=== PATIENT | male | born 1945 | race Caucasian/White ===

== ENCOUNTER 2017-05-03 13:47 | Inpatient (IN) | payer MEDICARE, SELFPAY ==
[2017-05-03] VITALS (11 sets, daily range): BP systolic 107–173; BP diastolic 52–85; PULSE 72–90; RESP 14–30; TEMP 36.8–36.9; O2SAT 84–97; BMI 33.5; BMI 35.2
--- NOTE | 2017-05-03 13:52 | EKG12_ITS ---
Test Reason : SOB Blood Pressure : / mmHG Vent. Rate : 083 BPM Atrial Rate : 083 BPM P-R Int : 130 ms QRS Dur : 104 ms QT Int : 382 ms P-R-T Axes : 053 037 054 degrees QTc Int : 448 ms Normal sinus rhythm Low voltage QRS Borderline ECG Confirmed by ADRIANNA MAGAÑA, HAIELY ([id number]), story editor RAJ ROBLEDO ([id number]) on 05/05/2017 3:11:19 PM Referred By: EVELIA Confirmed By:HAILEY RODAS MD
--- NOTE | 2017-05-03 13:52 | RAD_ITS ---
STUDY: X-RAY CHEST REASON FOR EXAM: Male, 71 years old. Cough. TECHNIQUE: Two AP portable upright views of the chest. COMPARISON: Portable AP upright chest x-ray February 05, 2017. FINDINGS: There are prominent bibasilar interstitial densities consistent with inflammatory change, subsegmental atelectasis, or mild pulmonary venous congestion. Stable focal, patchy density in the left midlung. There is no demonstrated pleural abnormality. There is stable mild cardiac enlargement. Normal mediastinum. There is a calcified left hilar lymph node. Normal visualized pulmonary arteries. Normal visualized aortic arch and descending thoracic aorta. There are stable multilevel degenerative changes of the visualized thoracic spine. Normal visualized ribs, clavicles, and shoulders. There is no demonstrated abnormality of the visualized soft tissue structures of the upper abdomen. RAD/Chest 1 View (Portable) IMPRESSION: 1. Prominent bibasilar interstitial densities consistent with inflammatory change or pulmonary venous congestion. 2. Stable mild cardiac enlargement. 3. Focal patchy, almost nodular density in the left midlung is stable. The extent of calcified granulomatous disease is less conspicuous here than on CT of November 2016. Electronically Signed: Julio Cesar Covington MD at 15:04 EDT , Service support ,
[2017-05-03] MEDS: Ipratropium/Albuterol Sulfate 3 ML AMPUL.NEB INHALATION ×2 (13:57→19:54)
[2017-05-03 14:10] LABS: Absolute Neutrophil Count 3.1 X10^3/uL (2.0-7.7); Basophil# 0.01 X10^3/uL; Basophil% 0.2 % (0-1); Eosinophil# 0.07 X10^3/uL; Eosinophils% 1.3 % (0-5); Hematocrit 38.1 % (40-54); Hemoglobin 11.7 g/dl (13.0-16.5); Lymphocyte % 29.3 % (19-41); Mean Corp Hgb Conc 30.7 g/gl (32-36); Mean Corpuscular Hgb 25.1 pg (27.0-32.0); Mean Corpuscular Volume 81.6 fL (80-94); Mean Platelet Vol. 10.7 fl (6.2-12.0); Monocyte# 0.62 X10^3/uL; Monocyte% 11.4 % (0-10); Neutrophil # 3.14 X10^3/uL (2.7-7.7); Neutrophil % 57.4 % (47-70); POSITIVE COUNT NO; POSITIVE DIFFERENTIAL NO; POSITIVE MORPHOLOGY NO; Platelet Count 188 K/mm3 (150-450); RBC Distribution Width CV 17.2 % (11.6-14.6); RBC Distribution Width SD 51.5 fl (35.1-43.9); Red Blood Count 4.67 M/mm3 (4.6-6.2); White Blood Count 5.5 K/mm3 (4.4-11.0)
--- NOTE | 2017-05-03 14:17 | EKG12_ITS ---
Test Reason : SOB Blood Pressure : / mmHG Vent. Rate : 089 BPM Atrial Rate : 089 BPM P-R Int : 116 ms QRS Dur : 124 ms QT Int : 384 ms P-R-T Axes : 050 088 051 degrees QTc Int : 467 ms Normal sinus rhythm Septal infarct , age undetermined Abnormal ECG Confirmed by ADRIANNA MAGAÑA, HAILEY ([id number]), editor producer RAJ ROBLEDO ([id number]) on 05/05/2017 3:11:31 PM Referred By: PALOMA Confirmed By:HAILEY RODAS MD
[2017-05-03 14:26] LABS: Anion Gap 7 (5-15); BUN 9 mg/dL (7-18); BUN/Creat Ratio 8.2 RATIO (10-20); Calcium,Total 8.1 mg/dL (8.5-10.1); Chloride 108 mmol/L (98-107); EST Glomerular Filtration Rate 70 mL/min (>60); Est Glom Filt Rate - Afr Amer 85 mL/min (>60); Glucose 161 mg/dL (74-106); Potassium 4.2 mmol/L (3.5-5.1); Sodium Level 142 mmol/L (136-145)
[2017-05-03 14:35] LABS: BNP,B-Type NATRIURETIC PEPTIDE 572.7 pg/mL (0-100)
--- NOTE | 2017-05-03 14:58 | NURSING ---
CALLED [facility] AND LEFT MESSAGE ON THE TRANSFER LINE.
--- NOTE | 2017-05-03 15:08 | ED.DCSUM_ITS ---
- ER Visit Summary Date of Service: 05/03/17 Chief Complaint: [] Shortness of breath this morning trouble walking due to dyspnea History of Present Illness: The patient is a 71 M [] 3 of CAD IA COPD diabetes hypertension multiple other medical problems see the list, reports he went to sleep feeling fine woke this morning with shortness of breath would not go away he had trouble just walking across the room in his home he came in for evaluation. He has had no chest pain fever chronic cough no abdominal pain normal bowel bladder habits chronic leg edema no history of DVT or PE Physical Examination: [] Word speaking in phrases his vital signs are unremarkable his pulse ox on 4 L is 98% his lung sounds are diminished as are his heart tones he has a barrel chest his abdomen is obese but soft and nontender backs unremarkable upper lower extremity unremarkable 2+ edema that is not new neurologically he is awake alert moving all 4 Test Results: [] Emergency Department Course and Treatment: [] Was treated with therapy oxygen aerosols is feeling better his EKG and his labs unremarkable, chest x-ray shows pulmonary vascular congestion BNP 600, INR pending, he has been treated with Lasix after aerosol therapy is feeling better but not want to be discharged home I spoke with the hospitalist will be done to see him shortly for admission , at this time there is no signs of cardiopulmonary distress or failure Treatment Plan: [] Disposition: [] Stable Impression: [] chf, heart failure causing sudden dyspnea history of IA CAD COPD diabetes This note was generated with [email or web address] dictation software. It may contain incorrect words, spelling, and punctuation that were not noted in review of the chart prior to signing ED Disposition - Plan for ED Patient: Chief Complaint: Shortness of Breath [facility] [Primary Care Provider] -
[2017-05-03] MEDS: Furosemide 40 MG/4 ML Vial IV ×2 (15:09→18:11)
[2017-05-03 15:14] LABS: International Normalized Ratio 2.3; Prothrombin Time (Protime)PT. 25.8 SECONDS (11.7-14.9)
--- NOTE | 2017-05-03 15:14 | NURSING ---
[facility], CALLED BACK. HE TOOK INFO FROM MESSAGE AND ASKED A COUPLE OTHER QUESTIONS. WHEN ASKED IF WE COULD ADMIT PATIENT, HIS RESPONCE WAS IF THAT IS NEEDED TO SUSTAIN PATIENT , THEN DO IT THE NURSE IN ADMITTING DOESN'T COME IN UNTIL TOMORROW.
--- NOTE | 2017-05-03 15:18 | NURSING ---
PCU CHF [facility]
--- NOTE | 2017-05-03 17:08 | PCM.HP.STD ---
Problem List (1) Chronic obstructive pulmonary disease, unspecified Status: Chronic Qualifiers: COPD type: emphysema Emphysema type: centrilobular Qualified Code(s): J43.2 - Centrilobular emphysema (2) Paroxysmal atrial fibrillation Status: Chronic (3) DM (diabetes mellitus), type 2 with peripheral vascular complications Status: Chronic (4) HTN (hypertension) Status: Chronic Qualifiers: Hypertension type: essential hypertension Qualified Code(s): I10 - Essential (primary) hypertension (5) Obesity (BMI 30-39.9) Status: Chronic (6) Congestive heart failure (CHF) Status: Acute Qualifiers: Heart failure type: systolic Heart failure chronicity: acute on chronic Qualified Code(s): I50.23 - Acute on chronic systolic (congestive) heart failure (7) Acute respiratory failure Status: Acute Qualifiers: Respiratory failure complication: hypoxia Qualified Code(s): J96.01 - Acute respiratory failure with hypoxia History of Present Illness Date of Admission: 05/03/17 Chief Complaint: Shortness of breath. Patient is a 71 years old male with history of systolic dysfunction and COPD, presents to ED with acute onset of shortness of breath, started when he woke up this morning. He states that he was doing as usual yesterday, denied of any chest pain, worsening of peripheral edema, palpitations, or dizziness before today. He has orthopnea now, with dyspnea at rest. His Oxygen saturation at the time of arrival was 84% room air, improved to upper 90's with 4 liter NC. BNP 527, troponin 0.05. EKG showed interventricular conduction delay without bundle branch with normal sinus rhythm. Past Medical History Past Medical History (Chronic Problems): Chronic Problems (Last Updated 03/17/17 @ 13:34 by Kendra Palacio) Stage 2 moderate COPD by GOLD classification (Chronic) Elevated liver enzymes (Chronic) Chronic obstructive pulmonary disease, unspecified (Chronic) Occlusion and stenosis of bilateral carotid arteries (Chronic) Intermittent claudication (Chronic) Fatigue (Chronic) Paroxysmal atrial fibrillation (Chronic) Old CT (myocardial infarction) (Chronic) DM (diabetes mellitus), 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) H/O percutaneous transluminal coronary angioplasty (Chronic) PTCA with stenting of RCA and LAD 10/09/2003; Coronary atherosclerosis of [place] coronary vessel (Chronic) PTCA with stenting of RCA and LAD 10/09/2003; Acute CT, anterior wall, subsequent episode of care (Chronic) HTN (hypertension) (Chronic) HLD (hyperlipidemia) (Chronic) Obesity (BMI 30-39.9) (Chronic) Tobacco use (Chronic) PVD (peripheral vascular disease) (Chronic) COPD (chronic obstructive pulmonary disease) (Chronic) Obesity (Chronic) CKD (chronic kidney disease), stage III (Chronic) Baseline Cr 1.0-1.2 Hypothyroidism (Chronic) Hypoxemia (Chronic) Coronary artery disease (Chronic) History of CT (myocardial infarction) (Chronic) Prostate cancer (Chronic) COPD exacerbation (Chronic) Chronic back pain (Chronic) Afib (Chronic) Diabetes mellitus type 2, uncontrolled (Chronic) Allergies Tetanus Vaccines and Toxoid [Tetanus Vaccines & Toxoid] Allergy (Verified 05/03/17 13:51) Swelling venom-honey bee [bee venom (honey bee)] Allergy (Verified 05/03/17 13:51) Swelling Home Medications: Ambulatory Orders Medication Instructions Recorded Amiodarone HCl [Cordarone] 100 mg PO DAILY 10/23/13 Levothyroxine [Synthroid] 25 mcg PO DAILY 10/23/13 Pravastatin [Pravachol] 40 mg PO QHS 10/23/13 Spironolactone [Aldactone] 25 mg PO DAILY 10/23/13 glipiZIDE [Glucotrol] 10 mg PO BID 10/23/13 Albuterol Inhaler [Ventolin Hfa] 1 - 2 puff INHALATION Q4H PRN PRN 10/28/13 #3 inhaler Pregabalin [Lyrica] 50 mg PO BID 08/25/15 Aspirin [Aspirin, Baby] 81 mg PO DAILY@0800 02/05/17 Carvedilol [Coreg (Beta Genna)] 6.25 mg PO BID 02/05/17 nitroglycerin 0.4 mg sublingual 0.4 mg SUBLINGUAL Q5M PRN 03/06/17 tablet Lisinopril [Zestril] 5 mg PO BID 05/03/17 Saxagliptin HCl [Onglyza] 5 mg PO DAILY 05/03/17 Tamsulosin HCl [Flomax] 0.4 mg PO BID 05/03/17 Tiotropium [place] [Spiriva 1 puff IH BID 05/03/17 Respimat] Warfarin [Coumadin ([facility])] 5 mg PO DAILY 05/03/17 Surgical History: - - PCI and cholecystectomy. Psychiatric History: No pertinent psych hx Smoking Status: Former smoker - *Family History Paternal History Items: No pertinent history Maternal History Items: No pertinent history Review of Systems Comment: ROS: In general: Patient has been in good health, denied of any constitutional symptoms, such as weight loss, or gain, fever, chills, or night sweats. Patient denied of any profound fatigue. HEENT: Unremarkable. Patient denied of any dizziness, chronic headache, blurred vision, double vision, dry mouth, or nasal congestion. CV/respiratory: See HPI. GI: Patient denied any abdominal pain, nausea, vomiting, diarrhea, constipation, melena, or hematochezia. : Patient denied any significant urinary symptoms. Neurology: Unremarkable. There is no history of seizure as an adult. Psychological: Unremarkable. ?. Endocrine: Unremarkable. Musculoskeletal: Unremarkable. VTE Information - Inpt Only VTE Present on Admission: No VTE Mechan Device Prophylaxis: Knee High KELLY Hose VTE Pharm Prophylaxis ordered?: Yes Objective: In general, patient is a well-nourished and developed adult. Appears short of breath, some gasping of air. HEENT: Head is atraumatic, and normocephalic. Pupils are equal, round, and reactive to light and accommodations. Neck is supple. There is no lymphadenopathy, or thyromegaly. Oral mucosa is pink, and moist. There are no lesions. Heart: Auscultation is normal with regular rhythm and rate. There is no extra heart sounds, or murmurs. S1 and S2 are present. Point of maximal impulse is not displaced. Lungs: Lungs are clear to auscultation bilaterally. There is no wheezing, or crackles. Abdomen: Abdominal wall is non-tender, and non-distended. There is no palpable mass or organomegaly. Normoactive bowel sounds are present. Extremities: There is no cyanosis or clubbing. Peripheral pulses are palpable. Trace edema posterior calf bilaterally. Skin: There are no any skin discoloration or lesions. Neurological: CN II - XII are intact. Sensory and motor functions are grossly normal with no obvious deficit. Cerebellar functions are within normal range. Gait was not tested. - Physical Exam Vital Signs Temp Pulse Resp BP Pulse Ox 98.3 F 84 19 H 151/76 H 97 05/03/17 16:31 05/03/17 16:31 05/03/17 16:31 05/03/17 16:31 05/03/17 16:31 Oxygen Flow Rate (L/min) 2 Oxygen Delivery Method Nasal Cannula Weight: 252 lb 10.396 oz Body Mass Index (BMI) 35.2 Diagnostic Data Chest X-Ray 05/03/17 13:52 IMPRESSION: 1. Prominent bibasilar interstitial densities consistent with inflammatory change or pulmonary venous congestion. 2. Stable mild cardiac enlargement. 3. Focal patchy, almost nodular density in the left midlung is stable. The extent of calcified granulomatous disease is less conspicuous here than on CT of November 2016. Electronically Signed: Julio Cesar Covington MD at 15:04 EDT , Service support , Assessment/Plan Patient is a 71 years old male with history of systolic dysfunction and COPD, presents to ED with acute onset of shortness of breath, started when he woke up this morning. He states that he was doing as usual yesterday, denied of any chest pain, worsening of peripheral edema, palpitations, or dizziness before today. He has orthopnea now, with dyspnea at rest. His Oxygen saturation at the time of arrival was 84% room air, improved to upper 90's with 4 liter NC. BNP 527, troponin 0.05. EKG showed interventricular conduction delay without bundle branch with normal sinus rhythm. #1 Acute hypoxic respiratory failure. Mostly due to CHF with underling COPD. CXR consistent with pulmonary edema. WBC normal and afebrile, less likely infectious process. Lasix 40 mg given in ED, continue 40 mg IV bid. Oxygen supplement. Bronchodilator: DuoNeb q6h + albuterol Med Neb q2h prn. Monitor BMP. Trend troponin rule out myocardial infarction. #2 CHF exacerbation, acute on chronic, with systolic dysfunction. EF 40% 09/2016. He is on Coreg, lisinopril, and spironolactone, continue. His Lasix has been withheld, and instructed by his hospice music therapy at [place] to use only when he has worsening of edema. He reports no edema recently, hence has not been taking Lasix. Lasix 40 mg IV bid as above. Echo in AM. #3 COPD, moderate. Does not appear in exacerbation with no cough or other respiratory symptoms. Hold Spiriva. Bronchodilator as above. #4 Paroxysmal atrial fibrillation. In sinus rhythm. Continue amiodarone. On warfarin, therapeutic range. Continue warfarin at 5 mg po qPM. Monitor INR daily x 3. #5 Hypothyroidism. On levothyroxine 25 mcg po qd. Check TSH level. #6 BPH with obstructive uropathy. Continue tamsulosin. VTE prophylaxis: warfarin in therapeutic range. GI prophylaxis: H2 genna po. Patient is full code. Disposition: home in 2 to 3 days. Code Visit Inpatient E&M: 19419 Init Hosp L3
--- NOTE | 2017-05-03 17:25 | HP.PCM_ITS ---
Problem List (1) Chronic obstructive pulmonary disease, unspecified Status: Chronic Qualifiers: COPD type: emphysema Emphysema type: centrilobular Qualified Code(s): J43.2 - Centrilobular emphysema (2) Paroxysmal atrial fibrillation Status: Chronic (3) DM (diabetes mellitus), type 2 with peripheral vascular complications Status: Chronic (4) HTN (hypertension) Status: Chronic Qualifiers: Hypertension type: essential hypertension Qualified Code(s): I10 - Essential (primary) hypertension (5) Obesity (BMI 30-39.9) Status: Chronic (6) Congestive heart failure (CHF) Status: Acute Qualifiers: Heart failure type: systolic Heart failure chronicity: acute on chronic Qualified Code(s): I50.23 - Acute on chronic systolic (congestive) heart failure (7) Acute respiratory failure Status: Acute Qualifiers: Respiratory failure complication: hypoxia Qualified Code(s): J96.01 - Acute respiratory failure with hypoxia History of Present Illness Date of Admission: 05/03/17 Chief Complaint: Shortness of breath. Patient is a 71 years old male with history of systolic dysfunction and COPD, presents to ED with acute onset of shortness of breath, started when he woke up this morning. He states that he was doing as usual yesterday, denied of any chest pain, worsening of peripheral edema, palpitations, or dizziness before today. He has orthopnea now, with dyspnea at rest. His Oxygen saturation at the time of arrival was 84% room air, improved to upper 90' s with 4 liter NC. BNP 527, troponin 0.05. EKG showed interventricular conduction delay without bundle branch with normal sinus rhythm. Past Medical History Past Medical History (Chronic Problems): Chronic Problems (Last Updated 03/17/17 @ 13:34 by Kendra Palacio) Stage 2 moderate COPD by GOLD classification (Chronic) Elevated liver enzymes (Chronic) Chronic obstructive pulmonary disease, unspecified (Chronic) Occlusion and stenosis of bilateral carotid arteries (Chronic) Intermittent claudication (Chronic) Fatigue (Chronic) Paroxysmal atrial fibrillation (Chronic) Old [place] (myocardial infarction) (Chronic) DM (diabetes mellitus), 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) H/O percutaneous transluminal coronary angioplasty (Chronic) PTCA with stenting of RCA and LAD 10/09/2003; Coronary atherosclerosis of [place] coronary vessel (Chronic) PTCA with stenting of RCA and LAD 10/09/2003; Acute ME, anterior wall, subsequent episode of care (Chronic) HTN (hypertension) (Chronic) HLD (hyperlipidemia) (Chronic) Obesity (BMI 30-39.9) (Chronic) Tobacco use (Chronic) PVD (peripheral vascular disease) (Chronic) COPD (chronic obstructive pulmonary disease) (Chronic) Obesity (Chronic) CKD (chronic kidney disease), stage III (Chronic) Baseline Cr 1.0-1.2 Hypothyroidism (Chronic) Hypoxemia (Chronic) Coronary artery disease (Chronic) History of [place] (myocardial infarction) (Chronic) Prostate cancer (Chronic) COPD exacerbation (Chronic) Chronic back pain (Chronic) Afib (Chronic) Diabetes mellitus type 2, uncontrolled (Chronic) Allergies Tetanus Vaccines and Toxoid [Tetanus Vaccines & Toxoid] Allergy (Verified 13:51) Swelling venom-honey bee [bee venom (honey bee)] Allergy (Verified 05/03/17 13:51) Swelling Home Medications: Ambulatory Orders Medication Instructions Recorded Amiodarone HCl [Cordarone] 100 mg PO DAILY 10/23/13 Levothyroxine [Synthroid] 25 mcg PO DAILY 10/23/13 Pravastatin [Pravachol] 40 mg PO QHS 10/23/13 Spironolactone [Aldactone] 25 mg PO DAILY 10/23/13 glipiZIDE [Glucotrol] 10 mg PO BID 10/23/13 Albuterol Inhaler [Ventolin Hfa] 1 - 2 puff INHALATION Q4H PRN PRN 10/28/13 #3 inhaler Pregabalin [Lyrica] 50 mg PO BID 08/25/15 Aspirin [Aspirin, Baby] 81 mg PO DAILY@0800 02/05/17 Carvedilol [Coreg (Beta Genna)] 6.25 mg PO BID 02/05/17 nitroglycerin 0.4 mg sublingual 0.4 mg SUBLINGUAL Q5M PRN 03/06/17 tablet Lisinopril [Zestril] 5 mg PO BID 05/03/17 Saxagliptin HCl [Onglyza] 5 mg PO DAILY 05/03/17 Tamsulosin HCl [Flomax] 0.4 mg PO BID 05/03/17 Tiotropium [place] [Spiriva 1 puff IH BID 05/03/17 Respimat] Warfarin [Coumadin ([facility])] 5 mg PO DAILY 05/03/17 Surgical History: - - PCI and cholecystectomy. Psychiatric History: No pertinent psych hx Smoking Status: Former smoker - *Family History Paternal History Items: No pertinent history Maternal History Items: No pertinent history Review of Systems Comment: ROS: In general: Patient has been in good health, denied of any constitutional symptoms, such as weight loss, or gain, fever, chills, or night sweats. Patient denied of any profound fatigue. HEENT: Unremarkable. Patient denied of any dizziness, chronic headache, blurred vision, double vision, dry mouth, or nasal congestion. CV/respiratory: See HPI. GI: Patient denied any abdominal pain, nausea, vomiting, diarrhea, constipation, melena, or hematochezia. : Patient denied any significant urinary symptoms. Neurology: Unremarkable. There is no history of seizure as an adult. Psychological: Unremarkable. ?. Endocrine: Unremarkable. Musculoskeletal: Unremarkable. VTE Information - Inpt Only VTE Present on Admission: No VTE Mechan Device Prophylaxis: Knee High KELLY Hose VTE Pharm Prophylaxis ordered?: Yes Objective: In general, patient is a well-nourished and developed adult. Appears short of breath, some gasping of air. HEENT: Head is atraumatic, and normocephalic. Pupils are equal, round, and reactive to light and accommodations. Neck is supple. There is no lymphadenopathy, or thyromegaly. Oral mucosa is pink, and moist. There are no lesions. Heart: Auscultation is normal with regular rhythm and rate. There is no extra heart sounds, or murmurs. S1 and S2 are present. Point of maximal impulse is not displaced. Lungs: Lungs are clear to auscultation bilaterally. There is no wheezing, or crackles. Abdomen: Abdominal wall is non-tender, and non-distended. There is no palpable mass or organomegaly. Normoactive bowel sounds are present. Extremities: There is no cyanosis or clubbing. Peripheral pulses are palpable. Trace edema posterior calf bilaterally. Skin: There are no any skin discoloration or lesions. Neurological: CN II - XII are intact. Sensory and motor functions are grossly normal with no obvious deficit. Cerebellar functions are within normal range. Gait was not tested. - Physical Exam Vital Signs Temp Pulse Resp BP Pulse Ox 98.3 F 84 19 H 151/76 H 97 05/03/17 16:31 05/03/17 16:31 05/03/17 16:31 05/03/17 16:31 05/03/17 16:31 Oxygen Flow Rate (L/min) 2 Oxygen Delivery Method Nasal Cannula Weight: 252 lb 10.396 oz Body Mass Index (BMI) 35.2 Diagnostic Data Chest X-Ray 05/03/17 13:52 IMPRESSION: 1. Prominent bibasilar interstitial densities consistent with inflammatory change or pulmonary venous congestion. 2. Stable mild cardiac enlargement. 3. Focal patchy, almost nodular density in the left midlung is stable. The extent of calcified granulomatous disease is less conspicuous here than on CT of November 2016. Electronically Signed: Julio Cesar Covington MD at 15:04 EDT , Service support , Assessment/Plan Patient is a 71 years old male with history of systolic dysfunction and COPD, presents to ED with acute onset of shortness of breath, started when he woke up this morning. He states that he was doing as usual yesterday, denied of any chest pain, worsening of peripheral edema, palpitations, or dizziness before today. He has orthopnea now, with dyspnea at rest. His Oxygen saturation at the time of arrival was 84% room air, improved to upper 90' s with 4 liter NC. BNP 527, troponin 0.05. EKG showed interventricular conduction delay without bundle branch with normal sinus rhythm. #1 Acute hypoxic respiratory failure. Mostly due to CHF with underling COPD. CXR consistent with pulmonary edema. WBC normal and afebrile, less likely infectious process. Lasix 40 mg given in ED, continue 40 mg IV bid. Oxygen supplement. Bronchodilator: DuoNeb q6h + albuterol Med Neb q2h prn. Monitor BMP. Trend troponin rule out myocardial infarction. #2 CHF exacerbation, acute on chronic, with systolic dysfunction. EF 40% 09/2016. He is on Coreg, lisinopril, and spironolactone, continue. His Lasix has been withheld, and instructed by his coat check attendant at [place] to use only when he has worsening of edema. He reports no edema recently, hence has not been taking Lasix. Lasix 40 mg IV bid as above. Echo in AM. #3 COPD, moderate. Does not appear in exacerbation with no cough or other respiratory symptoms. Hold Spiriva. Bronchodilator as above. #4 Paroxysmal atrial fibrillation. In sinus rhythm. Continue amiodarone. On warfarin, therapeutic range. Continue warfarin at 5 mg po qPM. Monitor INR daily x 3. #5 Hypothyroidism. On levothyroxine 25 mcg po qd. Check TSH level. #6 BPH with obstructive uropathy. Continue tamsulosin. VTE prophylaxis: warfarin in therapeutic range. GI prophylaxis: H2 genna po. Patient is full code. Disposition: home in 2 to 3 days. Code Visit Inpatient E&M: 08968 Init Hosp L3
[2017-05-03] MEDS: Glucerna Shake 120 ML LIQUID PO ×2 (18:10→23:25)
[2017-05-03] MEDS: 0.9% NaCl Peripheral Flush Adult/Peds IV (18:11)
[2017-05-03 18:31] LABS: Bedside Glucose 185 mg/dL (70-110)
[2017-05-03] MEDS: Carvedilol 6.25 MG Tablet PO (23:24)
[2017-05-03] MEDS: Pregabalin 50 MG Capsule PO (23:24)
[2017-05-03] MEDS: Famotidine 20 MG Tablet PO (23:24)
[2017-05-03] MEDS: Pravastatin 40 MG Tablet PO (23:24)
[2017-05-03] MEDS: Lisinopril 5 MG Tablet PO (23:24)
[2017-05-03] MEDS: Tamsulosin HCl 0.4 MG Capsule PO (23:24)
[2017-05-03 23:36] LABS: Bedside Glucose 150 mg/dL (70-110)
--- NOTE | 2017-05-03 23:45 | NURSING ---
Handed over care of this patient to Rosita WALL. Bedside report complete.
[2017-05-04] VITALS (16 sets, daily range): BP systolic 107–119; BP diastolic 40–56; PULSE 61–75; RESP 16–20; TEMP 36.6–37.1; O2SAT 92–97
[2017-05-04 04:22] LABS: Hematocrit 32.6 % (40-54); Hemoglobin 10.4 g/dl (13.0-16.5); Mean Corp Hgb Conc 31.9 g/gl (32-36); Mean Corpuscular Hgb 25.6 pg (27.0-32.0); Mean Corpuscular Volume 80.3 fL (80-94); Mean Platelet Vol. 10.9 fl (6.2-12.0); Platelet Count 167 K/mm3 (150-450); RBC Distribution Width CV 17.1 % (11.6-14.6); Red Blood Count 4.06 M/mm3 (4.6-6.2); White Blood Count 4.9 K/mm3 (4.4-11.0)
[2017-05-04 04:27] LABS: Scan Indicated on CBC? Y/N NO
[2017-05-04 04:53] LABS: International Normalized Ratio 2.3; Prothrombin Time (Protime)PT. 25.3 SECONDS (11.7-14.9)
[2017-05-04 05:21] LABS: Anion Gap 8 (5-15); BUN 12 mg/dL (7-18); BUN/Creat Ratio 9.8 RATIO (10-20); Calcium,Total 8.2 mg/dL (8.5-10.1); Chloride 103 mmol/L (98-107); Creatinine, Serum 1.23 mg/dL (0.70-1.30); EST Glomerular Filtration Rate 62 mL/min (>60); Est Glom Filt Rate - Afr Amer 75 mL/min (>60); Estimated Creatinine Clearance 60.37 ml/min; Glucose 103 mg/dL (74-106); Potassium 3.6 mmol/L (3.5-5.1); Sodium Level 141 mmol/L (136-145); Thyroid Stim Hormone (TSH) 4.47 uIU/mL (0.358-3.74)
--- NOTE | 2017-05-04 05:55 | ECHOD_ITS ---
Reason For Study: CHF Procedure This was a 2D Doppler, Color Flow transthoracic echocardiogram. Exam performed portable in patient room. Left Ventricle Normal LV size. Mild concentric left ventricular hypertrophy. The estimated ejection fraction is 40 %. Transmitral diastolic flow velocities suggest mild (stage 1) diastolic dysfunction (reversed pattern). [place] : Akinetic. Anterio-Basal: Normal. Lateral-Basal: Normal. Posterior-Basal: Hypokinetic. Infero-Basal: Hypokinetic. Basal inferoseptal: Hypokinetic. Basal anteroseptal: Hypokinetic. Mid-Anterior : Normal. Mid-Lateral : Normal. Mid-Posterior: Hypokinetic. Mid-Inferior: Hypokinetic. Mid-inferoseptal : Hypokinetic. Mid-anteroseptal : Normal. Right Ventricle Normal RV size. Normal systolic function. Atria Normal left atrium. Normal right atrium. Mitral Valve Normal mitral valve. Mild (1+) eccentric mitral valve insufficiency. Tricuspid Valve Normal tricuspid valve. Unable to estimate RV systolic pressure/pulmonary artery pressure due to technically difficult study. Aortic Valve Trisinus/trileaflet aortic valve. Mild focal aortic valve calcification. Peak aortic valve gradient 40 mmHg. Mean aortic valve gradient 22 mmHg. Moderate aortic stenosis. Pulmonic Valve Normal pulmonic valve. Great Vessels Mild to moderately dilated aortic root. The pulmonary artery is normal size. Normal inferior vena cava. Pericardium/Pleural No pericardial effusion. MMode/2D Measurements & Calculations LVIDd: 5.3 cm IVSd: 1.4 cm LVOT diam: 2.0 cm LVIDs: 3.8 cm LVPWd: 1.2 cm LVOT area: 3.0 cm2 RVDd: 3.7 cm FS: 28.6 % Ao root diam: 2.9 cm LAV(MOD-bp): 58.6 ml EDV(MOD-sp4): 242.4 ml LA dimension: 5.1 cm LAV(MOD-bp) Indexed: 25.3 ml/m2 ESV(MOD-sp4): 122.8 ml LAV(MOD-sp2): 54.0 ml EF(MOD-sp4): 49.3 % LAV(MOD-sp4): 61.4 ml EDV(MOD-sp2): 213.1 ml SV(MOD-sp4): 119.6 ml SV(MOD-sp2): 94.2 ml EF(MOD-sp2): 44.2 % LA A4 area: 19.9 cm2 RA A4 area: 14.9 cm2 Doppler Measurements & Calculations MV E max juan david: 115.3 cm/sec Ao V2 max: 315.4 cm/sec AI max juan david: 322.4 cm/sec MV A max juan david: 153.7 cm/sec Ao max P.0 mmHg AI max P.7 mmHg MV E/A: 0.75 Ao V2 mean: 217.8 cm/sec AI dec slope: 205.2 cm/sec2 Ao mean P.0 mmHg AI P1/2t: 460.1 msec Ao V2 VTI: 70.3 cm BARBARA(I,D): 1.1 cm2 BARBARA(V,D): 1.2 cm2 LV V1 max: 123.0 cm/sec SV(LVOT): 80.8 ml PA V2 max: 105.8 cm/sec LV V1 max P.1 mmHg LV V1 mean P.4 mmHg LV V1 mean: 86.4 cm/sec LV V1 VTI: 26.9 cm Interpretation Summary Normal LV size. Mild concentric left ventricular hypertrophy. The estimated ejection fraction is 40 %. Transmitral diastolic flow velocities suggest mild (stage 1) diastolic dysfunction (reversed pattern). Compared to prior study, there is no significant change. Ordering Physician: Hebert Soto Referring Physician: [facility] Performed By: Shonda Cooper, JENNIFER, RVT
[2017-05-04] MEDS: Levothyroxine 25 MCG TABLET PO (05:56)
--- NOTE | 2017-05-04 06:01 | NURSING ---
Called for breathing tx @ this time per patient request.
[2017-05-04] MEDS: Ipratropium/Albuterol Sulfate 3 ML AMPUL.NEB INHALATION ×3 (06:08→19:28)
[2017-05-04 06:55] LABS: Bedside Glucose 142 mg/dL (70-110)
[2017-05-04] MEDS: Lisinopril 5 MG Tablet PO ×2 (09:53→22:38)
[2017-05-04] MEDS: Spironolactone 25 MG Tablet PO (09:53)
[2017-05-04] MEDS: Aspirin 81 MG TAB.CHEW PO (09:53)
[2017-05-04] MEDS: Pregabalin 50 MG Capsule PO ×2 (09:53→22:38)
[2017-05-04] MEDS: Tamsulosin HCl 0.4 MG Capsule PO ×2 (09:53→22:38)
[2017-05-04] MEDS: Furosemide 40 MG/4 ML Vial IV (09:53)
[2017-05-04] MEDS: Amiodarone 200 MG Tablet 100 MG PO (09:53)
[2017-05-04] MEDS: Carvedilol 6.25 MG Tablet PO ×2 (09:53→22:39)
[2017-05-04] MEDS: Famotidine 20 MG Tablet PO ×2 (09:54→22:39)
[2017-05-04] MEDS: 0.9% NaCl Peripheral Flush Adult/Peds IV ×2 (09:54→17:05)
--- NOTE | 2017-05-04 10:05 | CASEMGMT ---
This [facility] received a call from Amy at the [facility] and she is requesting clinicals for pt at this time. H & P, labs, and chest xray faxed to Amy at this time to fax # [phone]. Ngozi WALL CM
--- NOTE | 2017-05-04 11:23 | PCM.PN.HOSP ---
Subjective: Patient was seen and examined. He complains of shortness of breath on exertion, denies chest pain. Recently was taking of diuretics on account of kidney function. Patient has diuresed adequately Vitals/I&O's: Vital Signs Temp Pulse Resp BP Pulse Ox 98.7 F 61 18 119/40 L 92 05/04/17 09:48 05/04/17 11:14 05/04/17 09:48 05/04/17 09:48 05/04/17 09:48 Oxygen Flow Rate (L/min) 2 Oxygen Delivery Method Room Air Weight: 112 kg Body Mass Index (BMI) 35.2 Intake and Output for Last 24 Hours 05/02/17 05/03/17 05/04/17 23:59 23:59 23:59 Intake Total 120 / 120 440 / 440 Output Total 500 / 500 2200 / 2200 Balance -380 / -380 -1760 / -1760 General: Alert, Oriented x3, Cooperative, No apparent distress HEENT: Atraumatic, PERRLA, EOMI, Normocephalic Oral: Moist Mucosa Neck: Supple Lungs: Normal air movement, Diminished - at lower lung zones Cardiovascular: Regular rate, Regular Rhythm, Normal S1, Normal S2, No murmurs Abdomen: Bowel Sounds Present, Soft, Non Tender, Non-Distended, No Hepato-splenomegaly Extremities: Edema - Bilateral pedal edema +1 Skin: No rashes Musculoskeletal: No Tenderness to Palpation of Joints or Extremities Lymphatic: No Cervical, Supraclavicular, or Inguinal Adenopathy Neurological: Cranial nerves II-XII grossly intact, Neuro grossly intact Psych/Mental Status: Normal Affect, Appropriate Laboratory Results 05/03/17 17:40: Troponin I 0.07 H 05/03/17 18:16: POC Glucose 185 H 05/03/17 21:30: Troponin I 0.08 H 05/03/17 23:23: POC Glucose 150 H 05/04/17 04:06: WBC 4.9, RBC 4.06 L, Hgb 10.4 L, Hct 32.6 L, MCV 80.3, MCH 25.6 L, MCHC 31.9 L, RDW 17.1 H, RDW Differential 49.0 H, Plt Count 167, MPV 10.9 05/04/17 04:06: Sodium 141, Potassium 3.6, Chloride 103, Carbon Dioxide 30.0, Anion Gap 8, BUN 12, Creatinine 1.23, Estim Creat Clear Calc 60.37, Est GFR (MDRD) Af Amer 75, Est GFR (MDRD) Non-Af 62, BUN/Creatinine Ratio 9.8 L, Glucose 103, Calcium 8.2 L, TSH 4.47 H 05/04/17 04:06: Troponin I 0.06 05/04/17 04:06: PT 25.3 H, INR 2.3 05/04/17 06:49: POC Glucose 142 H Current Medications Acetaminophen (Tylenol) 650 mg PO Q6H PRN PRN PRN Reason: Mild Pain (1-3)/Temp > 100.7 F Albuterol Sulfate (Ventolin Aerosols) 2.5 mg INHALATION Q2H PRN PRN PRN Reason: SHORTNESS OF BREATH Albuterol/Ipratropium (Duoneb) 3 ml INHALATION Q6HWA.RT [facility] Last Admin: 05/04/17 06:08 Dose: 3 ml Amiodarone HCl (Cordarone) 100 mg PO DAILY [facility] Last Admin: 05/04/17 09:53 Dose: 100 mg Aspirin (Aspirin, Baby) 81 mg PO DAILY@0800 [facility] Last Admin: 05/04/17 09:53 Dose: 81 mg Bisacodyl (Dulcolax) 5 mg PO DAILY PRN PRN PRN Reason: Constipation Carvedilol (Coreg) 6.25 mg PO BID [facility] Last Admin: 05/04/17 09:53 Dose: 6.25 mg Dextrose (D50w Syringe) 0 gm IV X1 PRN; Protocol PRN Reason: Hypoglycemia Famotidine (Pepcid) 20 mg PO BID [facility] Last Admin: 05/04/17 09:54 Dose: 20 mg Furosemide (Lasix) 40 mg IV BIDLX [facility] Last Admin: 05/04/17 09:53 Dose: 40 mg Glucagon () 1 mg IM .X1 PRN PRN Reason: Hypoglycemia Insulin Aspart (Novolog Flexpen (Bkc)) 0 units SC ACHS [facility] PRN Reason: Protocol Last Admin: 05/04/17 08:37 Dose: Not Given Levothyroxine Sodium (Synthroid) 25 mcg PO DAILY@0600 [facility] Last Admin: 05/04/17 05:56 Dose: 25 mcg Lisinopril (Zestril) 5 mg PO BID [facility] Last Admin: 05/04/17 09:53 Dose: 5 mg Magnesium Hydroxide (Milk Of Magnesia) 30 ml PO DAILY PRN PRN Reason: Constipation Nutritional Formula (Lactose Free) (Glucerna Shake) 120 ml PO 4X/DAY [facility] Last Admin: 05/04/17 09:54 Dose: Not Given Ondansetron HCl (Zofran) 4 mg IV Q8H PRN PRN PRN Reason: NAUSEA Pravastatin Sodium (Pravachol) 40 mg PO QHS [facility] Last Admin: 05/03/17 23:24 Dose: 40 mg Pregabalin (Lyrica) 50 mg PO BID [facility] Last Admin: 05/04/17 09:53 Dose: 50 mg Sodium Chloride () 5 - 30 ml IV UD PRN PRN Reason: SALINE FLUSH Last Admin: 05/04/17 09:54 Dose: 10 ml Spironolactone (Aldactone) 25 mg PO DAILY [facility] Last Admin: 05/04/17 09:53 Dose: 25 mg Tamsulosin HCl (Flomax) 0.4 mg PO BID [facility] Last Admin: 05/04/17 09:53 Dose: 0.4 mg Warfarin Sodium (Coumadin (Pbkc)) 5 mg PO DAILY@1700 [facility] Last Admin: 05/03/17 18:10 Dose: 5 mg Zolpidem Tartrate (Ambien (Generic)) 5 mg PO QHS PRN PRN PRN Reason: INSOMNIA Medical Necessity - Tobacco Use Smoking Status: Former smoker Tobacco Use: Non-smoker Assessment/Plan 71 years old male with PMHx of chronic systolic CHF, COPD, admitted with acute onset of shortness of breath orthopnea and PND as well as worsening peripheral edema and managed as acute CHF exacerbation. 1. Acute hypoxic respiratory failure secondary to acute CHF exacerbation, resolved, patient stable on room air. 2. Acute on chronic systolic CHF exacerbation, EF 40% 09/2016, diuresing well, remains on Coreg, lisinopril, and spironolactone, his Lasix to 20 mg IV twice daily, continue with fluid restrictions, strict I's and O's 3. COPD, not in acute exacerbation, on as needed breathing treatment 4. Paroxysmal atrial fibrillation, in NSR, continue on amiodarone, and Coumadin, INR therapeutic 5. Hypothyroidism, TSH is elevated, on levothyroxine 25 mcg daily, would not make any changes for now in the setting of acute CHF exacerbation, would need to be repeated in the outpatient in 4-6 weeks to determine his levels and possible titration of his levothyroxine. 6. BPH with obstructive uropathy, on flomax. 7. DVT prophylaxis - on Coumadin Code Visit Inpatient E&M: 27645 Subs Hosp L2
[2017-05-04 12:11] LABS: Bedside Glucose 233 mg/dL (70-110)
--- NOTE | 2017-05-04 13:47 | CASEMGMT ---
Face to Face with patient for initial transition planning/care coordination assessment. RN LENCHO introduced self and role at [facility], pt voices understanding and consents to assessment at this time. Pt lying in bed in no distress at this time. Pt A/O x4 at this time and answers questions appropriately at this time. Care providers, pharmacy, and demographics verified. See attached link. Pt voices no further concerns/needs at this time. Advised pt to ask for CM if any further questions/concerns/needs arise, voices understanding. CM to follow for any further discharge planning/needs. PLAN: [place] [facility]
[2017-05-04] MEDS: Furosemide 40 MG/4 ML Vial 20 MG IV (17:04)
[2017-05-04 17:10] LABS: Bedside Glucose 214 mg/dL (70-110)
[2017-05-04 22:35] LABS: Bedside Glucose 220 mg/dL (70-110)
[2017-05-04] MEDS: Pravastatin 40 MG Tablet PO (22:39)
[2017-05-05] VITALS (18 sets, daily range): BP systolic 111–126; BP diastolic 48–58; PULSE 60–79; RESP 16–20; TEMP 36.2–37; O2SAT 88–97
[2017-05-05] MEDS: Ipratropium/Albuterol Sulfate 3 ML AMPUL.NEB INHALATION ×3 (03:39→18:50)
[2017-05-05] MEDS: Furosemide 40 MG/4 ML Vial IV (05:40)
[2017-05-05] MEDS: 0.9% NaCl Peripheral Flush Adult/Peds IV (05:40)
[2017-05-05] MEDS: Levothyroxine 25 MCG TABLET PO (05:40)
[2017-05-05 06:02] LABS: International Normalized Ratio 2.1; Prothrombin Time (Protime)PT. 23.3 SECONDS (11.7-14.9)
[2017-05-05 06:03] LABS: Hematocrit 34.8 % (40-54); Hemoglobin 10.9 g/dl (13.0-16.5); Mean Corp Hgb Conc 31.3 g/gl (32-36); Mean Corpuscular Hgb 25.3 pg (27.0-32.0); Mean Corpuscular Volume 80.7 fL (80-94); Mean Platelet Vol. 10.4 fl (6.2-12.0); Platelet Count 197 K/mm3 (150-450); RBC Distribution Width SD 50.2 fl (35.1-43.9); Red Blood Count 4.31 M/mm3 (4.6-6.2); White Blood Count 4.4 K/mm3 (4.4-11.0)
[2017-05-05 06:07] LABS: Scan Indicated on CBC? Y/N NO
[2017-05-05 06:17] LABS: BUN 17 mg/dL (7-18); BUN/Creat Ratio 12.1 RATIO (10-20); Calcium,Total 8.5 mg/dL (8.5-10.1); EST Glomerular Filtration Rate 53 mL/min (>60); Est Glom Filt Rate - Afr Amer 64 mL/min (>60); Estimated Creatinine Clearance 53.04 ml/min; Glucose 172 mg/dL (74-106); Sodium Level 135 mmol/L (136-145)
[2017-05-05 06:18] LABS: Anion Gap 6 (5-15); Chloride 98 mmol/L (98-107); Potassium 4.1 mmol/L (3.5-5.1)
[2017-05-05 07:05] LABS: Bedside Glucose 191 mg/dL (70-110)
[2017-05-05] MEDS: Aspirin 81 MG TAB.CHEW PO (08:05)
--- NOTE | 2017-05-05 08:59 | PCM.PN.HOSP ---
Subjective: Patient was seen and examined. Noted that he was wheezy last night with drop in his oxygen saturation. He has lost about 4 kg of fluid. Says he could lie almost flat on his side but not on his back. Denied any fever or chills or cough or runny nose or sore throat. Objective: Physical exam: General: Alert, Oriented x3, Cooperative, No apparent distress HEENT: Atraumatic, PERRLA, EOMI, Normocephalic Oral: Moist Mucosa Neck: Supple Lungs: Decreased air movement, Diminished - at lower lung zones, vesicular breath sounds with scattered wheezes Cardiovascular: Regular rate, Regular Rhythm, Normal S1, Normal S2, No murmurs Abdomen: Bowel Sounds Present, Soft, Non Tender, Non-Distended, No Hepato-splenomegaly Extremities: Edema - Bilateral pedal edema +1 Skin: No rashes Musculoskeletal: No Tenderness to Palpation of Joints or Extremities Lymphatic: No Cervical, Supraclavicular, or Inguinal Adenopathy Neurological: Cranial nerves II-XII grossly intact, Neuro grossly intact Psych/Mental Status: Normal Affect, Appropriate Vitals/I&O's: Vital Signs Temp Pulse Resp BP Pulse Ox 98.6 F 71 18 115/48 L 91 05/05/17 08:09 05/05/17 08:09 05/05/17 08:09 05/05/17 08:09 05/05/17 08:09 Oxygen Flow Rate (L/min) 2 Oxygen Delivery Method Room Air Weight: 110.7 kg Body Mass Index (BMI) 35.2 Intake and Output for Last 24 Hours 05/03/17 05/04/17 05/05/17 23:59 23:59 23:59 Intake Total 120 / 120 1150 / 1150 120 / 120 Output Total 500 / 500 4750 / 4750 1250 / 1250 Balance -380 / -380 -3600 / -3600 -1130 / -1130 Laboratory Results 05/04/17 11:44: POC Glucose 233 H 05/04/17 17:01: POC Glucose 214 H 05/04/17 22:33: POC Glucose 220 H 05/05/17 05:20: WBC 4.4, RBC 4.31 L, Hgb 10.9 L, Hct 34.8 L, MCV 80.7, MCH 25.3 L, MCHC 31.3 L, RDW 17.0 H, RDW Differential 50.2 H, Plt Count 197, MPV 10.4 05/05/17 05:20: Sodium 135 L, Potassium 4.1, Chloride 98, Carbon Dioxide 31.0, Anion Gap 6, BUN 17, Creatinine 1.40 H, Estim Creat Clear Calc 53.04, Est GFR (MDRD) Af Amer 64, Est GFR (MDRD) Non-Af 53 L, BUN/Creatinine Ratio 12.1, Glucose 172 H, Calcium 8.5 05/05/17 05:20: PT 23.3 H, INR 2.1 05/05/17 07:01: POC Glucose 191 H Current Medications Acetaminophen (Tylenol) 650 mg PO Q6H PRN PRN PRN Reason: Mild Pain (1-3)/Temp > 100.7 F Albuterol Sulfate (Ventolin Aerosols) 2.5 mg INHALATION Q2H PRN PRN PRN Reason: SHORTNESS OF BREATH Albuterol/Ipratropium (Duoneb) 3 ml INHALATION Q6HWA.RT [facility] Last Admin: 05/05/17 07:38 Dose: Not Given Amiodarone HCl (Cordarone) 100 mg PO DAILY [facility] Last Admin: 05/04/17 09:53 Dose: 100 mg Aspirin (Aspirin, Baby) 81 mg PO DAILY@0800 [facility] Last Admin: 05/05/17 08:05 Dose: 81 mg Bisacodyl (Dulcolax) 5 mg PO DAILY PRN PRN PRN Reason: Constipation Carvedilol (Coreg) 6.25 mg PO BID [facility] Last Admin: 05/04/17 22:39 Dose: 6.25 mg Dextrose (D50w Syringe) 0 gm IV X1 PRN; Protocol PRN Reason: Hypoglycemia Famotidine (Pepcid) 20 mg PO BID [facility] Last Admin: 05/04/17 22:39 Dose: 20 mg Furosemide (Lasix) 20 mg PO BID@1000,1800 [facility] Glipizide (Glucotrol) 10 mg PO BID [facility] Glucagon () 1 mg IM .X1 PRN PRN Reason: Hypoglycemia Insulin Aspart (Novolog Flexpen (Bkc)) 0 units SC ACHS [facility] PRN Reason: Protocol Last Admin: 05/05/17 08:06 Dose: 2 u Levothyroxine Sodium (Synthroid) 25 mcg PO DAILY@0600 [facility] Last Admin: 05/05/17 05:40 Dose: 25 mcg Lisinopril (Zestril) 5 mg PO BID [facility] Last Admin: 05/04/17 22:38 Dose: 5 mg Magnesium Hydroxide (Milk Of Magnesia) 30 ml PO DAILY PRN PRN Reason: Constipation Non-Formulary Medication (Saxagliptin Hcl [Onglyza]) 5 mg PO DAILY [facility] Ondansetron HCl (Zofran) 4 mg IV Q8H PRN PRN PRN Reason: NAUSEA Pravastatin Sodium (Pravachol) 40 mg PO QHS [facility] Last Admin: 05/04/17 22:39 Dose: 40 mg Prednisone (Prednisone) 40 mg PO DAILY@0800 [facility] Stop: 05/09/17 08:01 Pregabalin (Lyrica) 50 mg PO BID [facility] Last Admin: 05/04/17 22:38 Dose: 50 mg Sodium Chloride () 5 - 30 ml IV UD PRN PRN Reason: SALINE FLUSH Last Admin: 05/05/17 05:40 Dose: 10 ml Spironolactone (Aldactone) 25 mg PO DAILY [facility] Last Admin: 05/04/17 09:53 Dose: 25 mg Tamsulosin HCl (Flomax) 0.4 mg PO BID [facility] Last Admin: 05/04/17 22:38 Dose: 0.4 mg Warfarin Sodium (Coumadin (Pbkc)) 5 mg PO DAILY@1700 [facility] Last Admin: 05/04/17 17:05 Dose: 5 mg Zolpidem Tartrate (Ambien (Generic)) 5 mg PO QHS PRN PRN PRN Reason: INSOMNIA Medical Necessity - Tobacco Use Smoking Status: Former smoker Tobacco Use: Non-smoker Assessment/Plan 71 years old male with PMHx of chronic biventricular CHF, COPD, admitted with acute onset of shortness of breath, orthopnea and PND as well as worsening peripheral edema and managed as acute CHF exacerbation. 1. Acute hypoxic respiratory failure secondary to acute CHF exacerbation and mild COPD exacerbation, was put on oxygen yesterday after episode of wheezing, oxygen saturations are in the low 90s, off oxygen, wound. Assess for ambulatory oxygen. 2. Acute on chronic biventricular CHF exacerbation, EF 40% diuresing well, remains on Coreg, lisinopril, and spironolactone, now kidney function is slightly going up, will decrease Lasix to 20 mg p.o. twice daily, continue with fluid restriction and strict I's and O's, repeat BMP in a.m. 3. COPD, now in mild exacerbation, will start patient on prednisone 40 mg p.o. daily for 5 days and stop, continue with breathing treatments 4. Paroxysmal atrial fibrillation, in NSR, continue on amiodarone, and Coumadin, INR therapeutic 5. Hypothyroidism, TSH is elevated, on levothyroxine 25 mcg daily, would not make any changes for now in the setting of acute CHF exacerbation, would need to be repeated in the outpatient in 4-6 weeks to determine his levels and possible titration of his levothyroxine. 6. Type II DM, blood sugars are slightly uncontrolled, home medications were on hold on account of kidney function, will resume home oral hypoglycemic agents, continue with Accu-Cheks and insulin sliding scale 7. BPH with obstructive uropathy, on flomax. 8. DVT prophylaxis - on Coumadin Code Visit Inpatient E&M: 50450 Subs Hosp L2
--- NOTE | 2017-05-05 09:04 | PN_ITS ---
Subjective: Patient was seen and examined. Noted that he was wheezy last night with drop in his oxygen saturation. He has lost about 4 kg of fluid. Says he could lie almost flat on his side but not on his back. Denied any fever or chills or cough or runny nose or sore throat. Objective: Physical exam: General: Alert, Oriented x3, Cooperative, No apparent distress HEENT: Atraumatic, PERRLA, EOMI, Normocephalic Oral: Moist Mucosa Neck: Supple Lungs: Decreased air movement, Diminished - at lower lung zones, vesicular breath sounds with scattered wheezes Cardiovascular: Regular rate, Regular Rhythm, Normal S1, Normal S2, No murmurs Abdomen: Bowel Sounds Present, Soft, Non Tender, Non-Distended, No Hepato- splenomegaly Extremities: Edema - Bilateral pedal edema +1 Skin: No rashes Musculoskeletal: No Tenderness to Palpation of Joints or Extremities Lymphatic: No Cervical, Supraclavicular, or Inguinal Adenopathy Neurological: Cranial nerves II-XII grossly intact, Neuro grossly intact Psych/Mental Status: Normal Affect, Appropriate Vitals/I&O's: Vital Signs Temp Pulse Resp BP Pulse Ox 98.6 F 71 18 115/48 L 91 05/05/17 08:09 05/05/17 08:09 05/05/17 08:09 05/05/17 08:09 05/05/17 08:09 Oxygen Flow Rate (L/min) 2 Oxygen Delivery Method Room Air Weight: 110.7 kg Body Mass Index (BMI) 35.2 Intake and Output for Last 24 Hours 05/03/17 05/04/17 05/05/17 23:59 23:59 23:59 Intake Total 120 / 120 1150 / 1150 120 / 120 Output Total 500 / 500 4750 / 4750 1250 / 1250 Balance -380 / -380 -3600 / -3600 -1130 / -1130 Laboratory Results 05/04/17 11:44: POC Glucose 233 H 05/04/17 17:01: POC Glucose 214 H 05/04/17 22:33: POC Glucose 220 H 05/05/17 05:20: WBC 4.4, RBC 4.31 L, Hgb 10.9 L, Hct 34.8 L, MCV 80.7, MCH 25.3 L, MCHC 31.3 L, RDW 17.0 H, RDW Differential 50.2 H, Plt Count 197, MPV 10.4 05/05/17 05:20: Sodium 135 L, Potassium 4.1, Chloride 98, Carbon Dioxide 31.0, Anion Gap 6, BUN 17, Creatinine 1.40 H, Estim Creat Clear Calc 53.04, Est GFR ( MDRD) Af Amer 64, Est GFR (MDRD) Non-Af 53 L, BUN/Creatinine Ratio 12.1, Glucose 172 H, Calcium 8.5 05/05/17 05:20: PT 23.3 H, INR 2.1 05/05/17 07:01: POC Glucose 191 H Current Medications Acetaminophen (Tylenol) 650 mg PO Q6H PRN PRN PRN Reason: Mild Pain (1-3)/Temp > 100.7 F Albuterol Sulfate (Ventolin Aerosols) 2.5 mg INHALATION Q2H PRN PRN PRN Reason: SHORTNESS OF BREATH Albuterol/Ipratropium (Duoneb) 3 ml INHALATION Q6HWA.RT [facility] Last Admin: 05/05/17 07:38 Dose: Not Given Amiodarone HCl (Cordarone) 100 mg PO DAILY [facility] Last Admin: 05/04/17 09:53 Dose: 100 mg Aspirin (Aspirin, Baby) 81 mg PO DAILY@0800 [facility] Last Admin: 05/05/17 08:05 Dose: 81 mg Bisacodyl (Dulcolax) 5 mg PO DAILY PRN PRN PRN Reason: Constipation Carvedilol (Coreg) 6.25 mg PO BID [facility] Last Admin: 05/04/17 22:39 Dose: 6.25 mg Dextrose (D50w Syringe) 0 gm IV X1 PRN; Protocol PRN Reason: Hypoglycemia Famotidine (Pepcid) 20 mg PO BID [facility] Last Admin: 05/04/17 22:39 Dose: 20 mg Furosemide (Lasix) 20 mg PO BID@1000,1800 [facility] Glipizide (Glucotrol) 10 mg PO BID [facility] Glucagon () 1 mg IM .X1 PRN PRN Reason: Hypoglycemia Insulin Aspart (Novolog Flexpen (Bkc)) 0 units SC ACHS [facility] PRN Reason: Protocol Last Admin: 05/05/17 08:06 Dose: 2 u Levothyroxine Sodium (Synthroid) 25 mcg PO DAILY@0600 [facility] Last Admin: 05/05/17 05:40 Dose: 25 mcg Lisinopril (Zestril) 5 mg PO BID [facility] Last Admin: 05/04/17 22:38 Dose: 5 mg Magnesium Hydroxide (Milk Of Magnesia) 30 ml PO DAILY PRN PRN Reason: Constipation Non-Formulary Medication (Saxagliptin Hcl [Onglyza]) 5 mg PO DAILY [facility] Ondansetron HCl (Zofran) 4 mg IV Q8H PRN PRN PRN Reason: NAUSEA Pravastatin Sodium (Pravachol) 40 mg PO QHS [facility] Last Admin: 05/04/17 22:39 Dose: 40 mg Prednisone (Prednisone) 40 mg PO DAILY@0800 [facility] Stop: 05/09/17 08:01 Pregabalin (Lyrica) 50 mg PO BID [facility] Last Admin: 05/04/17 22:38 Dose: 50 mg Sodium Chloride () 5 - 30 ml IV UD PRN PRN Reason: SALINE FLUSH Last Admin: 05/05/17 05:40 Dose: 10 ml Spironolactone (Aldactone) 25 mg PO DAILY [facility] Last Admin: 05/04/17 09:53 Dose: 25 mg Tamsulosin HCl (Flomax) 0.4 mg PO BID [facility] Last Admin: 05/04/17 22:38 Dose: 0.4 mg Warfarin Sodium (Coumadin (Pbkc)) 5 mg PO DAILY@1700 [facility] Last Admin: 05/04/17 17:05 Dose: 5 mg Zolpidem Tartrate (Ambien (Generic)) 5 mg PO QHS PRN PRN PRN Reason: INSOMNIA Medical Necessity - Tobacco Use Smoking Status: Former smoker Tobacco Use: Non-smoker Assessment/Plan 71 years old male with PMHx of chronic biventricular CHF, COPD, admitted with acute onset of shortness of breath, orthopnea and PND as well as worsening peripheral edema and managed as acute CHF exacerbation. 1. Acute hypoxic respiratory failure secondary to acute CHF exacerbation and mild COPD exacerbation, was put on oxygen yesterday after episode of wheezing, oxygen saturations are in the low 90s, off oxygen, wound. Assess for ambulatory oxygen. 2. Acute on chronic biventricular CHF exacerbation, EF 40% diuresing well, remains on Coreg, lisinopril, and spironolactone, now kidney function is slightly going up, will decrease Lasix to 20 mg p.o. twice daily, continue with fluid restriction and strict I's and O's, repeat BMP in a.m. 3. COPD, now in mild exacerbation, will start patient on prednisone 40 mg p.o. daily for 5 days and stop, continue with breathing treatments 4. Paroxysmal atrial fibrillation, in NSR, continue on amiodarone, and Coumadin , INR therapeutic 5. Hypothyroidism, TSH is elevated, on levothyroxine 25 mcg daily, would not make any changes for now in the setting of acute CHF exacerbation, would need to be repeated in the outpatient in 4-6 weeks to determine his levels and possible titration of his levothyroxine. 6. Type II DM, blood sugars are slightly uncontrolled, home medications were on hold on account of kidney function, will resume home oral hypoglycemic agents , continue with Accu-Cheks and insulin sliding scale 7. BPH with obstructive uropathy, on flomax. 8. DVT prophylaxis - on Coumadin Code Visit Inpatient E&M: 67022 Subs Hosp L2
[2017-05-05] MEDS: Furosemide 20 MG Tablet PO ×2 (11:08→17:24)
[2017-05-05] MEDS: glipiZIDE 5 MG Tablet 10 MG PO ×2 (11:08→15:43)
[2017-05-05] MEDS: Amiodarone 200 MG Tablet 100 MG PO (11:09)
[2017-05-05] MEDS: Tamsulosin HCl 0.4 MG Capsule PO ×2 (11:11→21:30)
[2017-05-05] MEDS: Famotidine 20 MG Tablet PO ×2 (11:11→21:31)
[2017-05-05] MEDS: Carvedilol 6.25 MG Tablet PO ×2 (11:11→21:30)
[2017-05-05] MEDS: Spironolactone 25 MG Tablet PO (11:12)
[2017-05-05] MEDS: Pregabalin 50 MG Capsule PO ×2 (11:24→21:31)
[2017-05-05 11:41] LABS: Bedside Glucose 262 mg/dL (70-110)
--- NOTE | 2017-05-05 12:10 | CASEMGMT ---
Updated clinicals faxed to [facility] at this time. Ngozi WALL CM
[2017-05-05] MEDS: LINAGLIPTIN 5 MG TABLET PO (15:43)
[2017-05-05 16:00] LABS: Bedside Glucose 247 mg/dL (70-110)
[2017-05-05] MEDS: Pravastatin 40 MG Tablet PO (21:31)
[2017-05-05] MEDS: Lisinopril 5 MG Tablet PO (21:31)
[2017-05-05 22:05] LABS: Bedside Glucose 297 mg/dL (70-110)
--- NOTE | 2017-05-05 22:12 | NURSING ---
Pt given Nitro x2 for CP. States pain is 8/10 after second Nitro. Pt does not want a third Nitro. First Nitro temporarily relieved CP. Second Nitro did not relieve pain. Will ask MD for alternative pain management.
[2017-05-06] VITALS (7 sets, daily range): BP systolic 110–119; BP diastolic 49–57; PULSE 60–67; RESP 12–18; TEMP 36.3–36.8; O2SAT 89–97
[2017-05-06] MEDS: Levothyroxine 25 MCG TABLET PO (05:47)
[2017-05-06 06:30] LABS: Hematocrit 34.8 % (40-54); Hemoglobin 11.2 g/dl (13.0-16.5); Mean Corp Hgb Conc 32.2 g/gl (32-36); Mean Corpuscular Hgb 25.6 pg (27.0-32.0); Mean Corpuscular Volume 79.5 fL (80-94); Platelet Count 241 K/mm3 (150-450); RBC Distribution Width CV 16.6 % (11.6-14.6); Red Blood Count 4.38 M/mm3 (4.6-6.2)
[2017-05-06 06:38] LABS: Scan Indicated on CBC? Y/N NO
[2017-05-06 06:42] LABS: International Normalized Ratio 1.7; Prothrombin Time (Protime)PT. 19.8 SECONDS (11.7-14.9)
[2017-05-06] MEDS: Ipratropium/Albuterol Sulfate 3 ML AMPUL.NEB INHALATION (06:55)
[2017-05-06 06:58] LABS: Anion Gap 7 (5-15); BUN 21 mg/dL (7-18); BUN/Creat Ratio 14.8 RATIO (10-20); Calcium,Total 9.1 mg/dL (8.5-10.1); Chloride 100 mmol/L (98-107); Creatinine, Serum 1.42 mg/dL (0.70-1.30); EST Glomerular Filtration Rate 52 mL/min (>60); Est Glom Filt Rate - Afr Amer 63 mL/min (>60); Estimated Creatinine Clearance 52.29 ml/min; Glucose 174 mg/dL (74-106); Potassium 4.5 mmol/L (3.5-5.1); Sodium Level 137 mmol/L (136-145)
[2017-05-06 07:05] LABS: Bedside Glucose 178 mg/dL (70-110)
[2017-05-06] MEDS: Aspirin 81 MG TAB.CHEW PO (07:55)
[2017-05-06] MEDS: glipiZIDE 5 MG Tablet 10 MG PO (08:01)
--- NOTE | 2017-05-06 09:43 | PCM.DC ---
- Discharge Diagnoses Reason(s) for Visit for Discharge Instructions: Shortness of breath You will use the following diet at home:: Calorie/Carbohydrate Controlled (specify 1200, 1400, etc), Cardiac Your food should be the consistency of: Regular Your liquids should be the consistency of: Regular/Thin Discharge Activity: Return to Normal Activity Additional Instructions: Weigh yourself everyday and let your doctor know if you gain more than 5 pounds. You have to be on a low salt diet, restrict your fluids to less than 1.5 litres a day, follow-up with your bioinformaticist. You should be on some low dose lasix all the time and monitor your kidney function. Allergies/Adverse Reactions: Allergies Tetanus Vaccines and Toxoid [Tetanus Vaccines & Toxoid] Allergy (Verified 05/03/17 13:51) Swelling venom-honey bee [bee venom (honey bee)] Allergy (Verified 05/03/17 13:51) Swelling Medications to take at Discharge Amiodarone HCl [Cordarone] 100 mg PO DAILY 10/23/13 Levothyroxine [Synthroid] 25 mcg PO DAILY 10/23/13 Pravastatin [Pravachol] 40 mg PO QHS 10/23/13 Spironolactone [Aldactone] 25 mg PO DAILY 10/23/13 glipiZIDE [Glucotrol] 10 mg PO BID 10/23/13 Albuterol Inhaler [Ventolin Hfa] 1 - 2 puff INHALATION Q4H PRN PRN #3 inhaler 10/28/13 Pregabalin [Lyrica] 50 mg PO BID 08/25/15 Aspirin [Aspirin, Baby] 81 mg PO DAILY@0800 02/05/17 Carvedilol [Coreg (Beta Genna)] 3.125 mg PO BID 02/05/17 nitroglycerin 0.4 mg sublingual tablet 0.4 mg SUBLINGUAL Q5M PRN 03/06/17 Lisinopril [Zestril] 5 mg PO BID 05/03/17 Saxagliptin HCl [Onglyza] 5 mg PO DAILY 05/03/17 Tamsulosin HCl [Flomax] 0.4 mg PO BID 05/03/17 Tiotropium [place] [Spiriva Respimat] 1 puff IH BID 05/03/17 Warfarin [Coumadin] 5 mg PO DAILY 05/03/17 Furosemide [Lasix] 20 mg PO DAILY #30 tab 05/06/17 Prednisone See Taper PO UD #30 tab 05/06/17 The following prescriptions were given: Furosemide [Lasix] 20 mg PO DAILY #30 tab Prednisone See Taper PO UD #30 tab [facility] [[facility] - Please follow up with your Primary Care Physician in: within 2 weeks Proposed Discharge Date: 05/06/17
--- NOTE | 2017-05-06 09:53 | DCINST_ITS ---
- Discharge Diagnoses Reason(s) for Visit for Discharge Instructions: Shortness of breath You will use the following diet at home:: Calorie/Carbohydrate Controlled ( specify 1200, 1400, etc), Cardiac Your food should be the consistency of: Regular Your liquids should be the consistency of: Regular/Thin Discharge Activity: Return to Normal Activity Additional Instructions: Weigh yourself everyday and let your doctor know if you gain more than 5 pounds. You have to be on a low salt diet, restrict your fluids to less than 1.5 litres a day, follow-up with your associate sales manager. You should be on some low dose lasix all the time and monitor your kidney function. Allergies/Adverse Reactions: Allergies Tetanus Vaccines and Toxoid [Tetanus Vaccines & Toxoid] Allergy (Verified 13:51) Swelling venom-honey bee [bee venom (honey bee)] Allergy (Verified 05/03/17 13:51) Swelling Medications to take at Discharge Amiodarone HCl [Cordarone] 100 mg PO DAILY 10/23/13 Levothyroxine [Synthroid] 25 mcg PO DAILY 10/23/13 Pravastatin [Pravachol] 40 mg PO QHS 10/23/13 Spironolactone [Aldactone] 25 mg PO DAILY 10/23/13 glipiZIDE [Glucotrol] 10 mg PO BID 10/23/13 Albuterol Inhaler [Ventolin Hfa] 1 - 2 puff INHALATION Q4H PRN PRN #3 inhaler Pregabalin [Lyrica] 50 mg PO BID 08/25/15 Aspirin [Aspirin, Baby] 81 mg PO DAILY@0800 02/05/17 Carvedilol [Coreg (Beta Genna)] 3.125 mg PO BID 02/05/17 nitroglycerin 0.4 mg sublingual tablet 0.4 mg SUBLINGUAL Q5M PRN 03/06/17 Lisinopril [Zestril] 5 mg PO BID 05/03/17 Saxagliptin HCl [Onglyza] 5 mg PO DAILY 05/03/17 Tamsulosin HCl [Flomax] 0.4 mg PO BID 05/03/17 Tiotropium [place] [Spiriva Respimat] 1 puff IH BID 05/03/17 Warfarin [Coumadin] 5 mg PO DAILY 05/03/17 Furosemide [Lasix] 20 mg PO DAILY #30 tab 05/06/17 Prednisone See Taper PO UD #30 tab 05/06/17 The following prescriptions were given: Furosemide [Lasix] 20 mg PO DAILY #30 tab Prednisone See Taper PO UD #30 tab [facility] [[facility]] - Please follow up with your Primary Care Physician in: within 2 weeks Proposed Discharge Date: 05/06/17
--- NOTE | 2017-05-06 09:53 | PCM.DC.SUM ---
Discharge Date and Diagnosis Date of Admission: 05/03/17 Date of Discharge: 05/06/17 - Primary Discharge Diagnosis Acute hypoxic respiratory insufficiency/failure Acute on chronic biventricular heart failure Hypokalemia Acute COPD exacerbation - Secondary Discharge Diagnosis Chronic Problems (Last Updated 03/17/17 @ 13:34 by Kendra Palacio) Stage 2 moderate COPD by GOLD classification (Chronic) Elevated liver enzymes (Chronic) Chronic obstructive pulmonary disease, unspecified (Chronic) Occlusion and stenosis of bilateral carotid arteries (Chronic) Intermittent claudication (Chronic) Fatigue (Chronic) Paroxysmal atrial fibrillation (Chronic) Old VA (myocardial infarction) (Chronic) DM (diabetes mellitus), 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) H/O percutaneous transluminal coronary angioplasty (Chronic) PTCA with stenting of RCA and LAD 10/09/2003; Coronary atherosclerosis of [place] coronary vessel (Chronic) PTCA with stenting of RCA and LAD 10/09/2003; Acute VA, anterior wall, subsequent episode of care (Chronic) HTN (hypertension) (Chronic) HLD (hyperlipidemia) (Chronic) Obesity (BMI 30-39.9) (Chronic) Tobacco use (Chronic) PVD (peripheral vascular disease) (Chronic) COPD (chronic obstructive pulmonary disease) (Chronic) Obesity (Chronic) CKD (chronic kidney disease), stage III (Chronic) Baseline Cr 1.0-1.2 Hypothyroidism (Chronic) Hypoxemia (Chronic) Coronary artery disease (Chronic) History of VA (myocardial infarction) (Chronic) Prostate cancer (Chronic) COPD exacerbation (Chronic) Chronic back pain (Chronic) Afib (Chronic) Diabetes mellitus type 2, uncontrolled (Chronic) Hospital Course and Treatment Imaging Results: Clinical Impression(s) from Imaging Studies Chest X-Ray 05/03/17 13:52 IMPRESSION: 1. Prominent bibasilar interstitial densities consistent with inflammatory change or pulmonary venous congestion. 2. Stable mild cardiac enlargement. 3. Focal patchy, almost nodular density in the left midlung is stable. The extent of calcified granulomatous disease is less conspicuous here than on CT of November 2016. Electronically Signed: Julio Cesar Covington MD at 15:04 EDT , Service support , None Operations: None Procedures: 2-D Echocardiogram Summary of Care Provided: 71 years old male with PMHx of chronic biventricular CHF, COPD, admitted with acute onset of shortness of breath, orthopnea and PND as well as worsening peripheral edema and managed as acute CHF exacerbation. 1. Acute hypoxic respiratory failure secondary to acute CHF exacerbation and mild COPD exacerbation, managed on oxygen, with improvement, off oxygen 2 days prior to discharge, patient was assessed for home oxygen and did not qualify. 2. Acute on chronic biventricular CHF exacerbation, EF 40%, due to noncompliance with his Lasix, patient states that he was told to be off Lasix because of his abnormal kidney function [facility], re-started on Lasix in the hospital, he diuresed very well, dose of Lasix was changed because he had slight elevation in his creatinine, discharged on 20 mg p.o. bid and asked to repeat his blood work in the outpatient. He has to continue with fluid restrictions and daily weights. 3. Acute COPD exacerbation, mild, managed on breathing treatments and steroids. 4. Paroxysmal atrial fibrillation, in NSR, on amiodarone, and Coumadin, INR therapeutic 5. Hypothyroidism, TSH is elevated at 4.47, on levothyroxine 25 mcg daily, no changes made to medications, would need to be repeated in the outpatient in 4-6 weeks to determine his levels and possible titration of his levothyroxine. 6. Type II DM, blood sugars was initially slightly uncontrolled, home regimen was resumed, blood sugars improved over the course of his stay, he was discharged home on his home medications. 7. BPH with obstructive uropathy, on flomax. Discharge Diet: Low fat/ Low Cholesterol, 6 Cup Fluid Restriction, 2000 mg Sodium Diet Discharge Activity: Return to Normal Activity Home Medications: Medications to take at Discharge Amiodarone HCl [Cordarone] 100 mg PO DAILY 10/23/13 Levothyroxine [Synthroid] 25 mcg PO DAILY 10/23/13 Pravastatin [Pravachol] 40 mg PO QHS 10/23/13 Spironolactone [Aldactone] 25 mg PO DAILY 10/23/13 glipiZIDE [Glucotrol] 10 mg PO BID 10/23/13 Albuterol Inhaler [Ventolin Hfa] 1 - 2 puff INHALATION Q4H PRN PRN #3 inhaler 10/28/13 Pregabalin [Lyrica] 50 mg PO BID 08/25/15 Aspirin [Aspirin, Baby] 81 mg PO DAILY@0800 02/05/17 Carvedilol [Coreg (Beta Genna)] 3.125 mg PO BID 02/05/17 nitroglycerin 0.4 mg sublingual tablet 0.4 mg SUBLINGUAL Q5M PRN 03/06/17 Lisinopril [Zestril] 5 mg PO BID 05/03/17 Saxagliptin HCl [Onglyza] 5 mg PO DAILY 05/03/17 Tamsulosin HCl [Flomax] 0.4 mg PO BID 05/03/17 Tiotropium [place] [Spiriva Respimat] 1 puff IH BID 05/03/17 Warfarin [Coumadin] 5 mg PO DAILY 05/03/17 Furosemide [Lasix] 20 mg PO DAILY #30 tab 05/06/17 Prednisone See Taper PO UD #30 tab 05/06/17 Following Prescrptions Were Given to Patient: Furosemide [Lasix] 20 mg PO DAILY #30 tab Prednisone See Taper PO UD #30 tab [facility] [[facility]] - Please follow up with your Primary Care Physician in: within 2 weeks Disposition: Home Minutes spent on discharge:: 25 Patient Condition:: Stable Medical Necessity - Tobacco Use Smoking Status: Former smoker Tobacco Use: Non-smoker Meaningful Use Info Meaningful Use Diagnoses (Choose all that apply): CHF - CHF JAYDE/ARB ordered at discharge?: Yes Documented LVEF (%): 40 Code Visit Inpatient E&M: 30378 Disch Hosp
[2017-05-06] MEDS: Amiodarone 200 MG Tablet 100 MG PO (10:11)
[2017-05-06] MEDS: LINAGLIPTIN 5 MG TABLET PO (10:11)
[2017-05-06] MEDS: Spironolactone 25 MG Tablet PO (10:11)
[2017-05-06] MEDS: Famotidine 20 MG Tablet PO (10:11)
[2017-05-06] MEDS: Tamsulosin HCl 0.4 MG Capsule PO (10:12)
[2017-05-06] MEDS: Lisinopril 5 MG Tablet PO (10:12)
[2017-05-06] MEDS: Furosemide 20 MG Tablet PO (10:12)
[2017-05-06] MEDS: Carvedilol 6.25 MG Tablet PO (10:12)
--- NOTE | 2017-05-06 10:18 | CASEMGMT ---
Per Nallely RN, pt was 89% on room air with ambulation, but did dip down to 88% for a second and then back up. Per Nallely, pt is unsure about having oxygen at home at this time due to history of same and unable to pay for it. Per Nallely, pt states [facility] and he will speak to them at that time regarding possible oxygen at home. Per Nallely, pt is refusing home oxygen at this time. Ngozi WALL CM
[2017-05-06] MEDS: Pregabalin 50 MG Capsule PO (10:22)
--- NOTE | 2017-05-06 13:26 | CASEMGMT ---
Discharge instructions/[facility] at [facility]. Ngozi WALL CM
== END 2017-05-06 12:18 | disposition home or self-care (01) | DRG 291 ==
LOC: ED 15:28 → PCU 15:48
PROVIDERS: Admitting Provider Hospitalist; Emergency Provider Emergency Medicine; Visit Provider Internal Medicine
DX: I13.0 Hypertensive heart and chronic kidney disease with heart failure and stage 1 through stage 4 chronic kidney disease, or unspecified chronic kidney disease (principal); J96.01 Acute respiratory failure with hypoxia; N13.8 Other obstructive and reflux uropathy; J44.1 Chronic obstructive pulmonary disease with (acute) exacerbation; I48.0 Paroxysmal atrial fibrillation; I50.82 Biventricular heart failure; N40.1 Benign prostatic hyperplasia with lower urinary tract symptoms; E03.9 Hypothyroidism, unspecified; E11.65 Type 2 diabetes mellitus with hyperglycemia; N18.3 Chronic kidney disease, stage 3 (moderate); E11.22 Type 2 diabetes mellitus with diabetic chronic kidney disease; E78.5 Hyperlipidemia, unspecified; Z79.01 Long term (current) use of anticoagulants; Z79.84 Long term (current) use of oral hypoglycemic drugs; Z79.899 Other long term (current) drug therapy; I25.2 Old myocardial infarction; Z87.891 Personal history of nicotine dependence
CPT/HCPCS: 36415; 71045; 80048; 82962; 83880; 84443; 84484; 85025; 85027; 85610; 87493; 93005; 93306; 94640; 97802; 99285; A4216; J1940